=== PATIENT | male | born 1995 | race Caucasian/White ===

== ENCOUNTER 2019-10-09 12:39 | Day surgery (SDC) | payer OTHER ==
[~2019-10-09] VITALS: Ht 172.7 cm; Wt 73.0 kg
[2019-10-09] VITALS (10 sets, daily range): BP systolic 101–130; BP diastolic 49–69; PULSE 45–75; TEMP 97.7–98.3
[2019-10-09] MEDS ORDERED: IBU800 M1 PO (13:02)
--- NOTE | 2019-10-09 13:03 | NUR ---
TO RM 6 PER EMS, TRANSFERED SELF TO BED. WILL BE COMING AT A LATER TIME.
--- NOTE | 2019-10-09 13:11 | NUR ---
REPORT CALLED FROM SABIHA ROUSSEAU
--- NOTE | 2019-10-09 13:15 | NUR ---
DR BARROS INTO TALK WITH PATIENT
--- NOTE | 2019-10-09 13:33 | NUR ---
IS WITH PATIENT AT THIS TIME.
--- NOTE | 2019-10-09 16:00 | NUR ---
PT to surgical from PACU, report received from Chio RN. Pt is awake and alert, p,w,d, with reg and unlabored respirations. abd flat, soft with 3 laparoscopic incisions covered with bandaid, no drainage or redness noted. bowel tones hypoactive. Pt is accompanied by , Sally. IV to rac with ns infusing at tko rate, scds to bilat lower extremities.
--- NOTE | 2019-10-09 21:00 | NUR ---
PATIENT IN BED, DENIES PAIN. HAS 3 LAP SITES TO ABDOMEN WITH DRY BANDAIDS ON. BOWEL SOUNDS HYPOACTIVE, NO NAUSEA REPORTED. IVF TO RIGHT AC WITHOUT REDNESS OR SWELLING. SPOUSE AT BEDSIDE.
--- NOTE | 2019-10-10 03:20 | NUR ---
Pt awake, complains of pain to left abdomen. Medicated with [place] 5/325mg 1 tab po with Ibuprofen 600mg po at this time. Last IV antibiotic infusing without problem.
--- NOTE | 2019-10-10 04:00 | NUR ---
IVF CAPPED, PATIENT TAKING GOOD ORAL INTAKE.
[2019-10-10 04:13] VITALS: BP 98/43; PULSE 71; TEMP 97.9
[2019-10-10 07:35] VITALS: BP 103/49; PULSE 62; TEMP 98.4
--- NOTE | 2019-10-10 09:30 | NUR ---
Patient resting in bed at this time, family at bedside, Patient reports that abdomen is sore but tolerable, states he will call when he needs pain medication. Patient denies other needs at this time call light within reach.
--- NOTE | 2019-10-10 10:04 | NUR ---
RYLEE met with the patient and the patient's to complete initial assessment. The patient lives in [place] with his , Sally. The patient does not use DME and reports independence with ADLs. The patient receives medical care and prescriptions from [facility] or [facility]. The patient does not have advanced directives in the EMR. The patient plans to return home upon discharge with Sally providing transportation. There are no additional needs at this time.
[2019-10-10 11:12] VITALS: BP 103/49; PULSE 54; TEMP 97.8
--- NOTE | 2019-10-10 11:24 | NUR ---
Initial visit; Patient thanked [employer] for looking in on him and offering spiritual care.
[2019-10-10] MEDS ORDERED: NORCO 325 MG-51 TAB PO (12:22)
--- NOTE | 2019-10-10 14:20 | NUR ---
Discharge teaching completed. Discharge instructions and follow up appointments discussed, patient verbalized understanding. INT removed, catheter intact, hemostasis achieved. Administered PRN pain medication. Patient and spouse escorted to ED entrance where patient entered a private vehicle.
== END 2019-10-10 14:20 | disposition home or self-care (01) ==
LOC: EDBD → SDCO 12:39 → SURG 15:50 → SDCO 10-10 14:20
DX: K35.80 Unspecified acute appendicitis (principal); F17.210 Nicotine dependence, cigarettes, uncomplicated
CPT/HCPCS: OP; J0330; J1100; J1885; J2405; J2543; J2704; J3010; J7030; J7042